=== PATIENT | male | born 2000 | race Caucasian/White ===

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

== ENCOUNTER 2022-05-16 00:15 | Emergency (ER) | payer OTHER ==
[~2022-05-16] VITALS: Ht 167.6 cm; Wt 110.8 kg
[2022-05-16] MEDS ORDERED: KETOROLAC 60MG/2ML VIAL IM SCH (03:00)
[2022-05-16 03:39] VITALS: BP 134/76
[2022-05-16 03:57] LABS: CLARITY URINE CLEAR (CLEAR); COLOR URINE YELLOW (YELLOW); KETONES URINE TRACE (NEGATIVE); LEUKOCYTE ESTERASE URINE NEGATIVE (NEGATIVE); NITRITE URINE NEGATIVE (NEGATIVE); OCCULT BLOOD URINE NEGATIVE (NEGATIVE); PROTEIN URINE NEGATIVE (NEGATIVE); SPECIFIC GRAVITY URINE 1.033 (1.005-1.030)
[2022-05-16] MEDS ORDERED: IBUP-2029 MT (04:09)
== END 2022-05-16 04:28 | disposition home or self-care (01) ==
LOC: ER 00:15
DX: M54.50 Low back pain, unspecified (principal)
CPT/HCPCS: 81003; 96372; 99283; J1885

== ENCOUNTER 2022-11-08 13:58 | Emergency (ER) | payer OTHER ==
[~2022-11-08] VITALS: Ht 167.6 cm; Wt 138.0 kg
[~2022-11-08 13:58] MED LIST: IBUP-2029 MT
[2022-11-08] MEDS ORDERED: IBUP-2029 MT (15:16)
[2022-11-08] MEDS ORDERED: AMOX-494 MT (15:16)
[2022-11-08 15:54] VITALS: BP 126/66
== END 2022-11-08 15:55 | disposition home or self-care (01) ==
LOC: ER 13:58
DX: H66.91 Otitis media, unspecified, right ear (principal)
CPT/HCPCS: 99283